=== PATIENT | male | born 1950 | race Caucasian/White ===

== ENCOUNTER 2024-09-06 12:43 | Outpatient (CLI) | payer MEDICARE, OTHER ==
[2024-09-06 15:22] LABS: Actual Bicarbonate (HCO3a) 24.6 mEq/L (22-28); Analyzer IN Cardio CS ER; CO2 Tension 36.6 mmHg (35.0-45.0); Calcium, Ionized (arterial) 1.15 mmol/L (1.12-1.30); Carboxyhemoglobin (COHb) 0.3 gm% (0.0-3.0); Hematocrit-ABG 47 % (42.0-52.0); Hemoglobin (Hb) 15.9 g/dL (14.0-18.0); O2 Tension (PaO2), arterial 85.7 mmHg (> 70.0); Potassium - ABG Lab 3.99 mmol/L (3.70-5.30); Puncture Site Right Radial artery; pH, Arterial 7.446 (7.35-7.45)
== END 2024-09-06 12:44 | disposition home or self-care (01) ==
LOC: CSHCP 12:43
PROVIDERS: ATTEND Internal Medicine Critical Care Medicine
DX: J43.9 Emphysema, unspecified (principal)
CPT/HCPCS: 36600; 82805; 94060; 94618; 94726; 94729